=== PATIENT | female | born 1940 | race Caucasian/White ===

== ENCOUNTER 2024-01-21 10:39 | Emergency (ER) | payer OTHER, MEDICARE ==
[2024-01-21 10:59] VITALS: BP 150/100; PULSE 85; RESP 16; TEMP 97.5; BMI 24.4
[2024-01-21] MEDS ORDERED: ACETAMINOPHEN 500 MG TABLET (FP) ONE (11:15)
[2024-01-21] MEDS: ACETAMINOPHEN 500 MG TABLET (FP) PO ONE (11:16)
== END 2024-01-21 13:14 | disposition home or self-care (01) ==
LOC: FER 10:39
DX: S62.101A Fracture of unspecified carpal bone, right wrist, initial encounter for closed fracture (principal); W06.XXXA Fall from bed, initial encounter
CPT/HCPCS: 73110-TC-RT-FY; 73130-TC-RT-FY; 99283-25